=== PATIENT | female | born 1955 | race Caucasian/White ===

== ENCOUNTER 2025-04-19 22:13 | Emergency (ER) | payer OTHER, SELFPAY ==
[2025-04-19 22:17] VITALS: BP 182/111
--- NOTE | 2025-04-20 02:42 | ED.GENMED ---
History of Present Illness
General
Chief Complaint: Nose Bleed
Source: patient
Exam Limitations: none
Time Seen by Provider: 04/20/25 01:47
Nursing documentation reviewed up to this point in time: agreed with
History of Present Illness
History of Present Illness:
HPI:
70 y/o female with a pmh of CAD and TIA on aspirin + plavix, HTN, HLP, presents to the ER today with concerns of acute bleeding from the left nare for the past few hours, since earlier this evening. She reports that she was relaxing at home when she
had sudden onset of bleeding. She reports that she tried holding some pressure but she could not get it to stop. She has had nose bleeds in the past but never one that has lasted this long. No trauma. No current dizziness or lightheadedness. No
syncopal episodes. No vomiting of blood.
EXAM:
General: Patient is well appearing and in no acute distress; non-toxic
Skin: Warm and dry, no rashes or lesions
Head: Normocephalic, atraumatic
Eyes: Sclera non-icteric. EOMs intact.
Nose: Blood noted from the left nare anteriorly. No septal hematoma.
Throat: No posterior pharyngeal erythema, no blood in posterior pharynx
Cardiac: Regular rate and rhythm
Pulm: Normal respiratory effort
Neuro: CN II-XII intact, no focal neurologic deficits.
Psychiatric: Appropriate mood and affect.
ED COURSE:
Initially, epinephrine nasal was placed with cotton ball and pressure held but on reassessment this did not help with bleeding. Patient was requesting cautery as she did not want packing. Cautery was applied to the nose and patient later had a
return of bleeding.
4.5 cm anterior rapid rhino was subsequently placed with good hemostasis.
NUMBER AND COMPLEXITY OF PROBLEMS ADDRESSED AT THE ENCOUNTER
� Chronic conditions affecting care: CAD, HTN, HLP
� Acute Exacerbation and/or Progression of Chronic Illness: antiplatelet use
� Differential Diagnosis includes: acute anterior epistaxis, posterior epistaxis, rhinosinusitis
AMOUNT AND/OR COMPLEXITY OF DATA TO BE REVIEWED AND ANALYZED
� I performed an independent evaluation of and my interpretation is:
Laboratory Studies: Not indicated at this time
Other:
� Review of other/old records: No prior ER physician documentation to review
� Clinical information was obtained by an independent historian:
� Prescriptions/Medications Considered but not given: n/a
� Further testing considered but not performed: not indicated
RISK OF COMPLICATIONS AND/OR MORBIDITY OR MORTALITY OF PATIENT MANAGEMENT
� Social determinants of health affecting care: n/a
� Discussion with other providers: No consultants
� Escalation of care including admission/observation vs risk of discharge considered:
Admission is not indicated at this time
Patient had nasal packing placed with good hemostasis
She will require follow up with ENT provider for packing renewal
Phy Exam
Physical Exam
Physical Exam:
see hpi
Course
Vital Signs
Initial and Last Documented VS:
Initial Vital Signs
Temp Pulse Resp BP Pulse Ox
97.7 F 101 20 182/111 97
04/19/25 22:17 04/19/25 22:17 04/19/25 22:17 04/19/25 22:17 04/19/25 22:17
Last Documented Vital Signs
Temp Pulse Resp BP Pulse Ox
97.7 F 84 16 132/79 96
04/19/25 22:17 04/20/25 04:27 04/20/25 04:27 04/20/25 04:27 04/20/25 04:27
Procedures
Nosebleed
Drug treatment: Lidocaine and Epinephrine
Treatment: local pressure applied, Silver nitrate cautery and other (rhino rocket)
Post treatment bleeding: none- good control
*Pulse Oximetry
SaO2: 97
Oxygen Mode of Delivery: Room air
Patient hypoxic: no
*Critical Care Note
Total Time (30-74mins, 75-104mins- exclusive of procedures): Not Applicable
ED Attending Note
-
Portions of this chart may have been created with voice recognition software.� Occasional wrong word or��sound alike� substitutions may have occurred due to the inherent limitations of voice recognition software.
Discharge Plan
Departure
Patient Disposition: Home (Routine Discharge)
Date of Disposition: 04/20/25
Time of Disposition: 04:35
Patient with high blood pressure during this ER visit?: Yes
Condition: Good
Discharge Problem:
Acute anterior epistaxis
Instructions: Nosebleeds (DC), BLOOD PRESSURE
Referrals:
Baldo Acosta MD [Active, Otology] - Call in 1-3 days for appt
Demond Driscoll MD [Family Provider, Internal Medicine]
Activity Restrictions/Additional Instructions:
You will need packing removed in 24 to 48 hours. Please call the attached number to schedule a follow-up with ENT provider.
PLEASE RETURN TO ER SHOULD YOU DEVELOP FAINTING SPELLS, DIZZINESS, RETURN OF BLEEDING, VOMITING BLOOD, ABDOMINAL PAIN, OR ANY OTHER SIGNS OR SYMPTOMS WORRISOME TO YOU.
Interventions
Interventions:
*General Assessment Last Done: 04/19/25 22:17
*Neglect/Abuse Screening Last Done: 04/20/25 00:13
*ED COVID-19 Vaccine History Last Done: 04/20/25 00:13
*ED Influenza Vaccine History Last Done: 04/20/25 00:13
[facility] Risk Assessment Tool Last Done: 04/20/25 00:10
*Risk Screen - Suicide (C-SSRS) Last Done: 04/19/25 22:17
*Nursing Disposition Last Done: 04/20/25 04:38
ED-EENT Assessment Last Done: 04/20/25 00:13
Discharge Date and Time
Discharge Date/Time: 04/20/25 04:38
Print Language: ITALIAN
[2025-04-20 02:43] VITALS: BP 151/87
[2025-04-20 04:27] VITALS: BP 132/79
== END 2025-04-20 04:38 | disposition home or self-care (01) ==
LOC: EMR 22:13
PROVIDERS: EMERGENCY PHYSICIAN Emergency Medicine; FAMILY PHYSICIAN Internal Medicine
DX: R04.0 Epistaxis (principal); I10 Essential (primary) hypertension; E78.5 Hyperlipidemia, unspecified; I25.10 Atherosclerotic heart disease of native coronary artery without angina pectoris; Z86.73 Personal history of transient ischemic attack (TIA), and cerebral infarction without residual deficits
CPT/HCPCS: 30901; 99282